=== PATIENT | male | born 1995 | race Caucasian/White ===

== ENCOUNTER 2019-11-16 14:23 | Emergency (ER) | payer BC, OTHER ==
[~2019-11-16] VITALS: Ht 175 cm; Wt 65.7 kg
[2019-11-16] MEDS ORDERED: NS IV 1000 ML 1,000 ML IV SCH (14:42)
[2019-11-16] MEDS ORDERED: diphenhydrAMINE 50 MG/ML INJ (BENADRYL) IVP STA (14:42)
[2019-11-16] MEDS ORDERED: KETOROLAC 30 MG/ML VIAL IVP ONE (14:45)
[2019-11-16] MEDS ORDERED: PROCHLORPERAZINE 10 MG/2ML INJ (COMPAZINE) IV ONE (14:45)
--- NOTE | 2019-11-16 14:59 | ED Headache ---
General Chief Complaint: Head/Cervical Problems Stated Complaint: MIGRAINE Nursing Triage Note: headache with nausea and vomitting Nursing Sepsis Screen: No Definite Risk History of Present Illness Date Seen by Provider: Nov 16, 2019 Time Seen by Provider: 14:40 Initial Comments 24-year-old male presents for headache it's been present since approximately 0900 this morning. He gets approximately one to 2 migraines a year and it is usually improved by taking Ibuprofen or Excedrin. He tried Ibuprofen, upon awakening, with no improvement. He tried resting, but continue to have s ymptoms and began vomiting, 2 episodes [employer]. Timing/Duration: 4-6 hours Severity/Quality: moderate Location: frontal Prior Headaches/Recent Trauma: occasional headaches Associated Symptoms: No confusion, No fatigue, No facial pain, No fever/chills, No flushing, No loss of consciousness; nausea/vomiting; No nasal congestion, No nasal drainage, No numbness in legs/feet, No rash, No seizures, No sinus i nfection, No stiff neck, No vision changes, No weakness; other (photophobia) Allergies and Home Medications Allergies Coded Allergies: No Known Drug Allergies (Unverified , 11/16/19) Patient Home Medication List Home Medication List Reviewed: Yes Review of Systems Review of Systems Constitutional: no symptoms reported, see HPI Eyes: See HPI, Photophobia Gastrointestinal: see HPI, nausea, vomiting Psychiatric/Neurological: See HPI, Headache All Other Systems Reviewed Negative Unless Noted: Yes Past Hxoywxl-Dfuuxu-Pfguzg Hx Past Med/Social Hx: Reviewed Nursing Past Med/Soc Hx Patient Social History Alcohol Use: Denies Use Recreational Drug Use: No Smoking Status: Current Everyday Smoker Type Used: Cigarettes 2nd Hand Smoke Exposure: Yes Recent Foreign Travel: No Contact w/Someone Who Travel: No Recent Infectious Disease Expo: Yes Physical Abuse: No Sexual Abuse: No Mistreated: No Fear: No Past Medical History Asthma Headaches /Migraines Physical Exam Vital Signs Vital Signs - First Documented 11/16/19 14:31 Temp 36.5 Pulse 79 Resp 18 B/P (MAP) 116/74 (88) Pulse Ox 98 O2 Delivery Room Air Capillary Refill : Less Than 3 Seconds Height, Weight, BMI Height: '" Weight: lbs. oz. kg; 21.00 BMI Method: General Appearance: WD/WN, no apparent distress HEENT: PERRL/EOMI, normal ENT inspection, TMs normal, pharynx normal Neck: non-tender, full range of motion, supple, normal inspection Cardiovascular: normal peripheral pulses, regular rate, rhythm Respiratory: chest non-tender, lungs clear, normal breath sounds Gastrointestinal: normal bowel sounds, non tender, soft Psychiatric: alert, oriented x 3, depressed affect Crainal Nerves: normal hearing, normal speech, PERRL Coordination/Gait: normal finger to nose, normal gait Motor/Sensory: no motor deficit, no sensory deficit Skin: normal color, warm/dry Progress/Results/Core Measures Results/Orders My Orders Orders - TED SCHAFFER Ed Iv/Invasive Line Start (11/16/19 14:42) Ns Iv 1000 Ml (Sodium Chloride 0.9%) (11/16/19 14:42) Prochlorperazine Injection (Compazine In (11/16/19 14:45) Ketorolac Injection (Toradol Injection) (11/16/19 14:45) Diphenhydramine Injection (Benadryl Inje (11/16/19 14:42) Medications Given in ED Current Medications Medications Dose Ordered Sig/Abdi Route Start Time Stop Time Status Last Admin Dose Admin Ketorolac Tromethamine 30 mg ONCE ONCE IVP 11/16/19 14:45 11/16/19 14:46 DC 11/16/19 14:59 30 MG Prochlorperazine Edisylate 10 mg ONCE ONCE IV 11/16/19 14:45 11/16/19 14:46 DC 11/16/19 14:59 10 MG Vital Signs/I&O 11/16/19 11/16/19 14:31 15:39 Temp 36.5 Pulse 79 70 Resp 18 16 B/P (MAP) 116/74 (88) 122/80 (88) Pulse Ox 98 99 O2 Delivery Room Air Room Air Blood Pressure Mean: 88 Departure Impression Primary Impression: Headache Qualified Codes: G44.201 - Tension-type headache, unspecified, intractable Disposition: 01 HOME, SELF-CARE Condition: Improved Departure-Patient Inst. Decision time for Depature: 15:40 Referrals: [facility] (PCP/Family) Primary Care Physician Patient Instructions: Migraine Headache (DC) Add. Discharge Instructions: Increase oral fluids, 16 ounces of water every 2 hours while awake. Alternate between Tylenol 650 mg and ibuprofen 600 mg every 4 hours for pain or headache. You may also try Excedrin Migraine if symptoms are not improving. Establish care with a primary care provider and follow up if symptoms are not improving or worsen. Begin taking your daily allergy medicine, Edie, Zyrtec or Claritin. Return to the emergency department for new, urgent health care needs. All discharge instructions reviewed with patient and/or family. Voiced understanding. TED SCHAFFER Nov 16, 2019 14:58
[2019-11-16 15:39] VITALS: BP 122/80
--- OUTSIDE RECORDS SUMMARY | 2019-11-17 01:36 | XMS REPORT | Continuity of Care Document ---
Author Organization Unknown Address Unknown Phone Unavailable Allergies There is no data. Medications There is no data. Problems There is no data. Procedures There is no data. Results There is no data. Encounters ACCT No. Visit Date/Time Discharge Status Pt. Type Provider Facility Loc./Unit Complaint [id number] 08/18/2019 11:45:00 08/18/2019 23:59: 59 CLS [facility]
== END 2019-11-16 15:39 | disposition home or self-care (01) ==
LOC: ER 14:25
DX: R51 Headache (principal); F17.210 Nicotine dependence, cigarettes, uncomplicated

== ENCOUNTER 2020-01-14 21:41 | Emergency (ER) | payer SELFPAY ==
[~2020-01-14] VITALS: Ht 176 cm; Wt 65.7 kg
--- OUTSIDE RECORDS SUMMARY | 2020-01-14 21:47 | XMS REPORT | Continuity of Care Document ---
Author Organization Unknown Address Unknown Phone Unavailable Allergies Active Description Code Type Severity Reaction Onset Reported/Identified Relationship to Patient Clinical Status Yes No Known Drug Allergies [id number] Drug Allergy Unknown N/A 11/16/2019 Medications There is no data. Problems Date Dx Coded Attending Type Code Diagnosis Diagnosed By 11/19/2019 Ot F17.210 NI COTINE DEPENDENCE, CIGARETTES, UNCOMPL 11/19/2019 Ot R51 HEADACHE Procedures There is no data. Results There is no data. Encounters ACCT No. Visit Date/Time Discharge Status Pt. Type Provider Facility Loc./Unit Complaint [id number] 08/18/2019 11:45:00 08/18/2019 23:59: 59 CLS Outpatient CARLEY LOPEZ [facility] [id number] 01/14/2020 21:42:[address] Emergency WILLY PASCAL DO [facility] ER MIGRAINE,VOMITTING [id number] 11/16/2019 14:25:00 Document Registration
[2020-01-14 21:52] VITALS: BP 131/88
--- NOTE | 2020-01-14 22:04 | ED Headache ---
General Chief Complaint: Head/Cervical Problems Stated Complaint: MIGRAINE,VOMITTING Source: patient History of Present Illness Date Seen by Provider: January 14, 2020 Time Seen by Provider: 21:54 Initial Comments PT ARRIVES VIA POV FROM HOME C/O "MIGRAINE" SINCE 1400 TODAY HEADACHE IS ABOVE LEFT BROW NO VISION CHANGES NO DIZZINESS C/O NAUSEA, VOMITED X 1 NO FEVER OR RECENT ILLNESS NO NECK PAIN OR STIFFNESS STATES HE GETS THESE EXACT SAME HEADACHES AT LEAST ONCE A MONTH--STATES ARE DUE TO "ALLERGIES"--STATES "HEREDITARY" HIS MOM GETS HEADACHES ALSO. TAKES OLY DAILY, BUT NOT TODAY TOOK 200 MG IBUPROFEN AT 1430 BUT THREW UP AFTERWARD NO KNOWN SICK CONTACTS OR EXPOSURE TO COVID-19 PCP: JUSTO, ALSO GO[facility] [place]. Allergies and Home Medications Allergies Coded Allergies: No Known Drug Allergies (Unverified , 11/16/19) Patient Home Medication List Home Medication List Reviewed: Yes Review of Systems Review of Systems Constitutional: no symptoms reported Eyes: No Symptoms Reported; Denies Blurred Vision, Denies Decreased Acuity, Denies Vision Changes Ears, Nose, Mouth, Throat: no symptoms reported (NO SINUS PAIN ) Respiratory: no symptoms reported Cardiovascular: no symptoms reported Gastrointestinal: see HPI; No abdominal pain; nausea, vomiting Genitourinary: no symptoms reported Musculoskeletal: no symptoms reported; No back pain, No neck pain Skin: no symptoms reported Psychiatric/Neurological: See HPI, Headache; Denies Numbness, Denies Paresthesia, Denies Seizure, Denies Tingling, Denies Weakness Past Dakiyzv-Spojse-Fpfzkg Hx Past Med/Social Hx: Reviewed and Corrections made Patient Social History Alcohol Use: Occasionally Uses Recreational Drug Use: No Smoking Status: Current Everyday Smoker (1/2 PPD) Type Used: Cigarettes 2nd Hand Smoke Exposure: Yes Recent Foreign Travel: No Contact w/Someone Who Travel: No Seasonal Allergies Seasonal Allergies: Yes Past Medical History Surgeries: No Respiratory: Yes Asthma Cardiac: No Neurological: Yes Headaches /Migraines Genitourinary: No Gastrointestinal: No Musculoskeletal: No Endocrine: No HEENT: No Cancer: No Psychosocial: No Integumentary: No Blood Disorders: No Physical Exam Vital Signs Vital Signs - First Documented 01/14/20 21:52 Temp 36.3 Pulse 84 Resp 18 B/P (MAP) 131/88 (102) Pulse Ox 98 Capillary Refill : Height, Weight, BMI Height: '" Weight: lbs. oz. kg; 21.00 BMI Method: General Appearance: no apparent distress, thin, other (DIRTY, STRONG ODOR OF CIGARETTES. DOES NOT APPEAR TO BE IN ANY DISTRESS. ) HEENT: PERRL/EOMI, normal ENT inspection, TMs normal, pharynx normal; No photophobia Neck: non-tender, full range of motion, supple, normal inspection Cardiovascular: regular rate, rhythm, no edema, no JVD, no murmur Respiratory: normal breath sounds, no respiratory distress, no accessory muscle use Gastrointestinal: non tender, soft, no organomegaly Back: normal inspection, no CVA tenderness, no vertebral tenderness Extremities: normal inspection, normal capillary refill Psychiatric: alert, oriented x 3 Crainal Nerves: normal hearing, normal speech, PERRL Coordination/Gait: normal gait Motor/Sensory: no motor deficit, no sensory deficit Skin: normal color, warm/dry Progress/Results/Core Measures Results/Orders My Orders Orders - WILLY PASCAL DO Ondansetron Oral Dissolve Tab (Zofran (01/14/20 22:15) Ketorolac Injection (Toradol Injection) (01/14/20 22:15) Orphenadrine Injection (Norflex Injectio (01/14/20 22:15) Medications Given in ED Current Medications Medications Dose Ordered Sig/Abdi Route Start Time Stop Time Status Last Admin Dose Admin Ketorolac Tromethamine 60 mg ONCE ONCE IM 01/14/20 22:15 01/14/20 22:16 DC 01/14/20 22:15 60 MG Ondansetron HCl 4 mg ONCE ONCE PO 01/14/20 22:15 01/14/20 22:16 DC 01/14/20 22:15 4 MG Orphenadrine Citrate 60 mg ONCE ONCE IM 01/14/20 22:15 01/14/20 22:16 DC 01/14/20 22:15 60 MG Vital Signs/I&O 01/14/20 21:52 Temp 36.3 Pulse 84 Resp 18 B/P (MAP) 131/88 (102) Pulse Ox 98 Progress Progress Note : Progress Note SYMPTOMS BEGINNING TO IMPROVE AT DISMISSAL Departure Impression Primary Impression: Headache Disposition: 01 HOME, SELF-CARE Condition: Stable Departure-Patient Inst. Referrals: [facility] [place] ([place]) Primary Care Physician Patient Instructions: Headache, Adult (DC) Add. Discharge Instructions: HOME, REST LOTS OF CLEAR LIQUIDS TAKE YOUR ALLERGY MEDICATION DAILY PRESCRIBED FOLLOW UP WITH YOUR DR IF SYMPTOMS PERSIST All discharge instructions reviewed with patient and/or family. Voiced understanding. WILLY PASCAL DO January 14, 2020 22:04
[2020-01-14] MEDS ORDERED: KETOROLAC 60 MG/2 ML VIAL IM ONE (22:15)
[2020-01-14] MEDS ORDERED: ORPHENADRINE 60 MG/2 ML (NORFLEX) AMP IM ONE (22:15)
[2020-01-14] MEDS ORDERED: ONDANSETRON 4 MG (ZOFRAN) ORAL DISSOLVE TAB PO ONE (22:15)
== END 2020-01-14 22:37 | disposition home or self-care (01) ==
LOC: EDUNIT# 21:41 → ER 21:42
DX: R51 Headache (principal); F17.210 Nicotine dependence, cigarettes, uncomplicated
CPT/HCPCS: 99284

== ENCOUNTER 2021-12-31 08:27 | Emergency (ER) | payer OTHER ==
[~2021-12-31] VITALS: Ht 177 cm; Wt 68.0 kg
[2021-12-31 08:30] VITALS: BP 123/87
[2021-12-31] MEDS ORDERED: HYDROcodone/APAP 5 MG/325 MG (LORTAB) TAB PO ONE (08:45)
--- NOTE | 2021-12-31 08:45 | ED Upper Extremity ---
General Chief Complaint: Upper Extremity Stated Complaint: R HAND INJ - BLEEING Nursing Triage Note: ARRIVED VIA AMB WITH COMPLAINTS OF PUNCHING A WALL WHILE AT WORK WITH HIS RIGHT HAND. Source: patient Exam Limitations: no limitations History of Present Illness Date Seen by Provider: Dec 31, 2021 Time Seen by Provider: 08:35 Initial Comments Patient is a 26-year-old male who presents to the emergency room with a chief complaint of right hand pain and swelling. Patient reportedly punched a wall just prior to coming in today. Complains of numbness and tingling to his fingertips specifically the third fourth and fifth fingers. Has difficulty with pressure washer secondary to pain. Denies wrist pain elbow pain or shoulder pain. He is right-hand dominant. No other complaints of recent illness or injury. Onset: just prior to arrival Severity: severe Pain/Injury Location: right hand Method of Injury: direct blow Modifying Factors: Improves With Immobilization; Worse With Movement Allergies and Home Medications Allergies Coded Allergies: ceftriaxone (Verified Allergy, Severe, HIVES, 12/31/21) Patient Home Medication List Home Medication List Reviewed: Yes Hydrocodone/Acetaminophen (Hydrocodone-Acetamin 5-325 mg) 5 Mg-325 Mg Tablet, 1 TAB PO Q6H PRN for PAIN-MODERATE (5-7) Prescribed by: GRANT HOANG on 12/31/21 0916 Review of Systems Constitutional: see HPI EENTM: no symptoms reported Respiratory: no symptoms reported Cardiovascular: no symptoms reported Gastrointestinal: no symptoms reported Genitourinary: no symptoms reported Musculoskeletal: joint pain (right hand) Skin: other (abrasions) Psychiatric/Neurological: Numbness (right hand) All Other Systems Reviewed Negative Unless Noted: Yes Past Vbbgmlp-Wbtcoc-Zwpgmf Hx Seasonal Allergies Seasonal Allergies: Yes Past Medical History Surgeries: No Respiratory: Yes Asthma Cardiac: No Neurological: Yes Headaches /Migraines Genitourinary: No Gastrointestinal: No Musculoskeletal: No Endocrine: No HEENT: No Cancer: No Psychosocial: No Integumentary: No Blood Disorders: No Physical Exam Vital Signs Vital Signs - First Documented 12/31/21 08:30 Temp 36.3 Pulse 95 Resp 16 B/P (MAP) 123/87 (99) Pulse Ox 95 O2 Delivery Room Air Capillary Refill : Less Than 3 Seconds Height, Weight, BMI Height: '" Weight: lbs. oz. kg; 21.00 BMI Method: General Appearance: WD/WN, no apparent distress HEENT: PERRL/EOMI Neck: normal inspection Cardiovascular: regular rate, rhythm (HR 99/100) Respiratory: lungs clear, normal breath sounds, no respiratory distress, no accessory muscle use Shoulder: normal inspection, no evidence of injury Elbow/Forearm: normal inspection, non-tender, no evidence of injury, normal ROM Wrist: Yes normal inspection, Yes non-tender, Yes no evidence of injury, Yes normal ROM Hand: Right, abrasions (over 2nd and 3rd PIP joint - no active bleeding. slight abrasion 4th PIP; painful ROM with extension of 5th finger. states global right hand "numbness") Neurologic/Tendon: normal tendon functions, responds to pain, sensory deficit Neurologic/Psychiatric: alert, normal mood/affect, oriented x 3 Skin: normal color, warm/dry, other (appears dissheveled and unkempt) Procedures/Interventions Splinting and Joint Reduction : Pre-Proc Neuro Vasc Exam: normal Post-Proc Neuro Vasc Exam: normal Hand-Made Type: orthoglass Splint Application: Short Arm (ulnar gutter right arm) Progress/Results/Core Measures Results/Orders My Orders Medications Given in ED Vital Signs/I&O Blood Pressure Mean: 99 Diagnostic Imaging Diagonstic Imaging: Xray Comments [facility], [place] NAME: [facility] REC#: [id number] PT STATUS: REG ER : 1995 PHYSICIAN: GRANT HOANG MD ADMIT DATE: 12/31/21/ER Signed Date of Exam:12/31/21 HAND, RIGHT, 3 VIEWS EXAMINATION: Right hand 3 views HISTORY: hand pain COMPARISON: None available. FINDINGS: There is a mildly displaced right 5th metacarpal fracture and no other fracture is seen. Joint spaces are normal. IMPRESSION: Mildly displaced right 5th metacarpal fracture. Dictated by: Dictated on workstation # [id number] Dict: 12/31/2155 Trans: 12/31/[address] [facility] [id number] Interpreted by: MITALI LOPES MD Electronically signed by: MITALI LOPES MD 12/31/21 09 Departure Impression Primary Impression: Closed fracture of 5th metacarpal Qualified Codes: S62.336A - Displaced fracture of neck of fifth metacarpal bone, right hand, initial encounter for closed fracture Additional Impression: Abrasion hand Disposition: 01 HOME, SELF-CARE Condition: Stable Departure-Patient Inst. Decision time for Depature: 09:14 Referrals: NO,LOCAL PHYSICIAN (PCP) Primary Care Physician RICARDA CEBALLOS MD Patient Instructions: Hand Fracture Add. Discharge Instructions: Ice to the right hand 20 minutes at a time 3-4 times daily over the next 2 to 3 days. Keep the hand elevated above the level of the heart to keep swelling down. Please keep the splint in place until you follow-up with Dr. Ceballos or orthopedic surgeon of your choice. Dr. Ceballos's contact information is on this paperwork. Please call on Sunday for a follow-up appointment in 1 week. Take the hydrocodone 1 tablet every 6 hours as needed for pain. This medication can cause constipation. You should be on a stool softener while taking this da jud. You can also take paus-xam-rwlabky ibuprofen 2 to 3 tablets every 6 hours with food as needed for pain. Return to the emergency room for any worsening pain, redness, swelling, fever or other emergent concerning symptoms. Scripts Hydrocodone/Acetaminophen (Hydrocodone-Acetamin 5-325 mg) 5 Mg-325 Mg Tablet 1 TAB PO Q6H PRN for PAIN-MODERATE (5-7), #15 TAB Prov: GRANT HOANG MD 12/31/21 Work/School Note: Work Release Form Date Seen in the Emergency Department: Dec 31, 2021 Return to Work: January 02, 2022 Restrictions: No use of right hand Copy Copies To 1: RICARDA CEBALLOS MD, KATHRYN M MD Dec 31, 2021 08:45
--- NOTE | 2021-12-31 08:57 | Diagnostic Imaging Report ---
EXAMINATION: Right hand 3 views HISTORY: hand pain COMPARISON: None available. FINDINGS: There is a mildly displaced right 5th metacarpal fracture and no other fracture is seen. Joint spaces are normal. IMPRESSION: Mildly displaced right 5th metacarpal fracture. Dictated by: Dictated on workstation # [id number]
[2021-12-31] MEDS ORDERED: ACHD5005 PO (09:15)
== END 2021-12-31 09:37 | disposition home or self-care (01) ==
LOC: EDUNIT# 08:27 → ER 08:28
DX: S62.336A Displaced fracture of neck of fifth metacarpal bone, right hand, initial encounter for closed fracture (principal); S60.410A Abrasion of right index finger, initial encounter; S60.412A Abrasion of right middle finger, initial encounter; S60.414A Abrasion of right ring finger, initial encounter; W22.8XXA Striking against or struck by other objects, initial encounter; Y92.59 Other trade areas as the place of occurrence of the external cause; Y99.0 Civilian activity done for income or pay
CPT/HCPCS: 29125; 73130

== ENCOUNTER → 2022-01-04 | Outpatient (CLI) | payer OTHER ==
[~2022-01-04] MED LIST: ACHD5005 PO
== END ==
LOC: ORTHO 09:57
PROVIDERS: ATTEND Orthopaedic Surgery
DX: S62.309A Unspecified fracture of unspecified metacarpal bone, initial encounter for closed fracture (principal); X58.XXXA Exposure to other specified factors, initial encounter
CPT/HCPCS: 99203

== ENCOUNTER → 2022-01-18 | Outpatient (CLI) | payer SELFPAY ==
--- NOTE | 2022-01-18 10:41 | Diagnostic Imaging Report ---
INDICATION: Fracture, follow-up TECHNIQUE: Three views of the right hand. CORRELATION STUDY: 12/31/2021 FINDINGS: Predominantly transversely oriented fracture at the distal right 5th metacarpal in the region of the neck again demonstrated. Fracture line remains well visualized and is with moderate volar angulation. No appreciable interval healing from prior. Remaining osseous structures otherwise unremarkable. Mild soft tissue edema along the ulnar aspect of the hand. IMPRESSION: 1. No appreciable interval healing of a mildly displaced, angulated distal right 5th metacarpal fracture. Dictated by: Dictated on workstation # [id number]
== END ==
LOC: ORTHO 10:13
PROVIDERS: ATTEND Orthopaedic Surgery
DX: S62.336A Displaced fracture of neck of fifth metacarpal bone, right hand, initial encounter for closed fracture (principal); X58.XXXA Exposure to other specified factors, initial encounter
CPT/HCPCS: 73130

== ENCOUNTER → 2022-02-01 | Outpatient (CLI) | payer SELFPAY ==
--- NOTE | 2022-02-01 10:00 | Diagnostic Imaging Report ---
INDICATION: Fracture. Comparison is made with prior examination of 01/18/2022. FINDINGS: There is relatively stable alignment of the mildly comminuted fracture involving the distal aspect of the right 5th metacarpal. There is no other fracture or dislocation. There is some persistent volar angulation of the distal fracture fragment. IMPRESSION: Comminuted slightly displaced fracture of the distal right 5th metacarpal. There has been very little significant change in alignment compared to prior examination. Dictated by: Dictated on workstation # [id number]
== END ==
LOC: ORTHO 09:28
PROVIDERS: ATTEND Orthopaedic Surgery
DX: S62.336A Displaced fracture of neck of fifth metacarpal bone, right hand, initial encounter for closed fracture (principal); X58.XXXA Exposure to other specified factors, initial encounter
CPT/HCPCS: 73130